=== PATIENT | female | born 1950 | race Asian ===

== ENCOUNTER 2018-03-23 10:51 | Outpatient (CLI) | payer OTHER | END 2018-03-23 23:30 | disposition home or self-care (01) | LOC: RAD 10:51 | DX: M25.559 Pain in unspecified hip (principal) ==

== ENCOUNTER 2019-01-02 05:30 | Emergency (ER) | payer OTHER ==
[~2019-01-02] VITALS: Ht 165.1 cm; Wt 88.5 kg
[2019-01-02 05:30] VITALS: TEMP 97.5
[2019-01-02 06:00] LABS: PLATELET COUNT 251 K/uL (152-353)
[2019-01-02 06:05] LABS: POTASSIUM 3.6 mmol/L (3.6-5.2)
[2019-01-02 08:19] VITALS: BP 162/99
== END 2019-01-02 08:25 | disposition home or self-care (01) ==
LOC: ED 05:30
PROVIDERS: Emergency Medicine
DX: M62.830 Muscle spasm of back (principal); M54.42 Lumbago with sciatica, left side
CPT/HCPCS: 36415; 80053; 81000; 85027; 96360; 96374; 96375; 96376; 99284; J1885; J2270; J2405; J2550

== ENCOUNTER 2020-05-26 13:09 | Emergency (ER) | payer OTHER ==
[~2020-05-26] VITALS: Ht 165.1 cm; Wt 74.8 kg
[2020-05-26 13:17] VITALS: TEMP 99
[2020-05-26 14:56] VITALS: BP 124/78
== END 2020-05-26 14:57 | disposition home or self-care (01) ==
LOC: ED 13:09
DX: U07.1 COVID-19 (principal); J06.9 Acute upper respiratory infection, unspecified; F17.210 Nicotine dependence, cigarettes, uncomplicated
CPT/HCPCS: 87502; 87635; 87651; 96372; 99283; J1100; U0003

== ENCOUNTER 2020-08-05 11:31 | Outpatient (CLI) | payer OTHER | END 2020-08-05 19:23 | disposition home or self-care (01) | LOC: RAD 11:31 | PROVIDERS: ATTEND Nurse Practitioner | DX: R05 Cough (principal); R10.32 Left lower quadrant pain ==

== ENCOUNTER 2020-08-27 08:15 | Outpatient (CLI) | payer OTHER | END 2020-08-27 22:08 | disposition home or self-care (01) | LOC: CT 08:15 | PROVIDERS: ATTEND Nurse Practitioner | DX: R10.32 Left lower quadrant pain (principal) | CPT/HCPCS: 36415; 82565; 84520; Q9963 ==

== ENCOUNTER 2022-06-18 10:03 | Outpatient (CLI) | payer OTHER | END 2022-06-18 19:36 | disposition home or self-care (01) | LOC: MAMMO 10:03 | PROVIDERS: ATTEND Registered Nurse | DX: Z12.31 Encounter for screening mammogram for malignant neoplasm of breast (principal) ==